=== PATIENT | male | born 1995 | race Caucasian/White ===

== ENCOUNTER → 2017-02-07 | Outpatient (REF) | LOC: WSOH 13:49 | DX: Z02.4 Encounter for examination for driving license (principal) ==

== ENCOUNTER → 2018-12-10 | Outpatient (CLI) | payer BC | LOC: COL.RAD 11:04 | DX: M41.85 Other forms of scoliosis, thoracolumbar region (principal) ==

== ENCOUNTER 2019-07-04 09:31 | Emergency (ER) | payer BC ==
[~2019-07-04] VITALS: Ht 180.3 cm; Wt 61.4 kg
[2019-07-04 09:55] LABS: BASO % 0.3 % (0.0-2.0); EOS # 0.1 (0.0-0.7); EOS % 1.7 % (0-4.0); GRAN % 71.1 % (42.2-75.2); HEMATOCRIT 50.3 % (42.0-52.0); HEMOGLOBIN 16.4 g/dl (13.5-18.0); LYMPH # 1.2 (1.2-3.4); LYMPH % 17.4 % (20.0-51.0); MEAN CELL VOLUME 91 fl (80.0-100.0); MEAN CORPUSCULAR HEMOGLOBIN 30 pg (27.0-31.0); MEAN CORPUSCULAR HGB CONC 33 g/dl (33.0-37.0); MEAN PLATELET VOLUME 10.7 fl (7.4-10.4); MONO # 0.7 (0.1-0.6); MONO % 9.2 % (1.7-9.3); PLATELET COUNT 230 K/mm3 (130-400); RED BLOOD COUNT 5.51 M/mm3 (4.20-5.60); REDCELL DISTRIBUTION WIDTH-CV 13.2 % (11.5-14.5)
[2019-07-04 10:22] LABS: ALANINE AMINOTRANSFERASE 8 U/L (21-72); ALKALINE PHOSPHATASE 77 U/L (50-136); ANION GAP 13 mmol/L (7-16); AST,SGOT 28 U/L (15-37); BLOOD UREA NITROGEN 19 mg/dL (9-20); CALCIUM 9.6 mg/dL (8.4-10.2); CARBON DIOXIDE 27 mmol/L (22-30); CHLORIDE 101 mmol/L (98-107); CREATININE, serum 0.97 (0.66-1.25); GLUCOSE 147 mg/dL (74-106); LIPASE 64 U/L (23-300); SODIUM 141 mmol/L (137-145); TOTAL PROTEIN 8.3 gm/dL (6.4-8.2)
[2019-07-04 10:31] LABS: C-REACTIVE PROTEIN < 0.5 mg/dL (0.0-0.9)
[2019-07-04 10:32] LABS: COLLECTION METHOD CLEAN CATCH
[2019-07-04 11:59] LABS: MUCOUS Present /lpf; PH 6 (5-8); SQUAMOUS EPITHELIAL 0-2 /hpf; URINE APPEARANCE Clear; URINE BACTERIA None Seen /hpf; URINE BILIRUBIN Negative (NEGATIVE); URINE BLOOD 2+ (NEGATIVE); URINE COLOR Yellow; URINE GLUCOSE Negative (NEGATIVE); URINE KETONE 1+ (NEGATIVE); URINE LEUKOCYTE ESTERASE Negative (NEGATIVE); URINE NITRATE Negative (NEGATIVE); URINE PROTEIN(semi-quant) 1+ (NEGATIVE); URINE RBC >50 /hpf; URINE UROBILINOGEN Negative (NEGATIVE)
[2019-07-04] MEDS ORDERED: NORCO 325 MG-51 TAB PO (13:18)
[2019-07-04 13:27] VITALS: BP 116/67; PULSE 68; TEMP 98.4
== END 2019-07-04 13:30 | disposition home or self-care (01) ==
LOC: COL.ER 09:31
PROVIDERS: Family Medicine
DX: N20.1 Calculus of ureter (principal)
CPT/HCPCS: J1885; J2405; J7030; Q9967

== ENCOUNTER → 2019-09-20 | Outpatient (CLI) | payer BC ==
[~2019-09-20] MED LIST: NORCO 325 MG-51 TAB PO
[2019-09-20 17:44] LABS: COLLECTION METHOD CLEAN CATCH
[2019-09-20 18:10] LABS: MUCOUS Present /lpf; PH 8 (5-8); SQUAMOUS EPITHELIAL 0-2 /hpf; URINE APPEARANCE Hazy; URINE BACTERIA None Seen /hpf; URINE BILIRUBIN Negative (NEGATIVE); URINE BLOOD Negative (NEGATIVE); URINE CALCIUM OXALATE CRYSTAL Present /hpf; URINE COLOR Yellow; URINE GLUCOSE Negative (NEGATIVE); URINE KETONE Trace (NEGATIVE); URINE LEUKOCYTE ESTERASE Trace (NEGATIVE); URINE NITRATE Negative (NEGATIVE); URINE PROTEIN(semi-quant) 1+ (NEGATIVE); URINE UROBILINOGEN Negative (NEGATIVE); URINE WBC >50 /hpf
[2019-09-20 19:30] LABS: HIV 1/2 Antibodies Non-Reactive; HIV-1p24 Antigen Non-Reactive
[2019-09-21 19:00] LABS: HEPATITIS B SURFACE ANTIBODY 680.2 (()); HEPATITIS C VIRUS ANTIBODY Negative (Negative)
[2019-09-24 06:03] LABS: HERPES SIMPLEX TYPE 1 IGG INT Negative (Negative); HERPES SIMPLEX TYPE 2 IGG INT Negative (Negative)
== END ==
LOC: ZCOL.LAB 16:43
PROVIDERS: Family Medicine
DX: Z11.3 Encounter for screening for infections with a predominantly sexual mode of transmission (principal); R30.0 Dysuria

== ENCOUNTER → 2021-05-23 | Outpatient (REF) | LOC: COL.LAB 08:26 | DX: Z20.822 Contact with and (suspected) exposure to COVID-19 (principal) ==